=== PATIENT | male | born 1990 | race Caucasian/White ===

== ENCOUNTER 2019-01-03 11:38 | Emergency (ER) | payer BC ==
--- NOTE | 2019-01-03 12:12 | ER Document Report ---
ED Medical Screen (RME) - General Chief Complaint: Pain With Urination Stated Complaint: POSSIBLE UTI Time Seen by Provider: 01/03/19 12:06 Mode of Arrival: Ambulatory Information source: Patient Notes: 28-year-old male presented to ED for complaint of pain and difficulty urinating. Yesterday and today. He states it medley when he urinates. He states he only dribbles out a little bit even though his patient urinate a lot. He states he has not had any unprotected sex. He states he does not have any discharge from his penis. Patient is alert oriented respirations regular and unlabored speaking in full sentences. 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 He states his only medical history is a heart murmur. I have greeted and performed a rapid initial assessment of this patient. A comprehensive ED assessment and evaluation of the patient, analysis of test results and completion of medical decision making process will be conducted by an additional ED providers. TRAVEL OUTSIDE OF THE [place] IN LAST 30 DAYS: No - Related Data Allergies/Adverse Reactions: No Known Allergies Allergy (Unverified 01/03/19 11:39) Past Medical History - Social History Frequency of alcohol use: 3 beer daily Drug Abuse: None Renal/ Medical History: Denies: Hx Peritoneal Dialysis Physical Exam - Vital signs Vitals: Temp Pulse Resp BP Pulse Ox 98.2 F 83 16 156/81 H 98 01/03/19 11:50 01/03/19 11:50 01/03/19 11:50 01/03/19 11:50 01/03/19 11:50 Course - Vital Signs Vital signs: Temp Pulse Resp BP Pulse Ox 98.2 F 83 16 156/81 H 98 01/03/19 11:50 01/03/19 11:50 01/03/19 11:50 01/03/19 11:50 01/03/19 11:50
[2019-01-03 12:21] LABS: APPEARANCE,URINE SLIGHTLY-CLOUDY; BILIRUBIN,URINE NEGATIVE (NEGATIVE); COLOR,URINE YELLOW; GLUCOSE, URINE NEGATIVE (NEGATIVE); KETONES,URINE NEGATIVE (NEGATIVE); LEUKOCYTE ESTERASE,URINE MODERATE (NEGATIVE); NITRITE,URINE NEGATIVE (NEGATIVE); PROTEIN,URINE NEGATIVE (NEGATIVE); URINE SPECIFIC GRAVITY 1.019; UROBILINOGEN,URINE NEGATIVE mg/dL (<2.0)
[2019-01-03 13:03] VITALS: BP 147/69
[2019-01-03] MEDS ORDERED: LIDOCAINE 1% INJ-PF (10 MG/ML) 30 ML SDV INJ ONE (13:08)
[2019-01-03] MEDS ORDERED: CEPHALEXIN 500 MG CAPSULE PO ONE (13:08)
[2019-01-03] MEDS ORDERED: AZITHROMYCIN 250 MG TABLET PO ONE (13:08)
[2019-01-03] MEDS ORDERED: CEFTRIAXONE INJ 250 MG VIAL IM ONE (13:08)
--- NOTE | 2019-01-03 13:15 | ER Document Report ---
ED GI/ - General Chief Complaint: Pain With Urination Stated Complaint: POSSIBLE UTI Time Seen by Provider: 01/03/19 12:06 Mode of Arrival: Ambulatory Information source: Patient Notes: 28-year-old male presented to ED for burning and frequency painful urination. He states he has diffuse decreased in his stream. He states this been going on for couple days. Patient is alert oriented respirations regular and unlabored speaking in full sentences walks with a even steady gait. He states he has a history of heart murmur. He states he smokes a pack per day and drinks about 3 beers a day. 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 TRAVEL OUTSIDE OF THE [place] IN LAST 30 DAYS: No - HPI Patient complains to provider of: Dysuria, Other - Frequency urgency and burning with urination Onset: Other Timing/Duration: Gradual - Couple days Quality of pain: Burning Severity at maximum: Moderate Severity in ED: Moderate Pain Level: 4 Associated symptoms: Dysuria, Urinary frequency, Urinary urgency, Other - Decreased stream. denies: Penile discharge Exacerbated by: Other - Urination Relieved by: Denies Similar symptoms previously: No Recently seen / treated by doctor: No - Related Data Allergies/Adverse Reactions: No Known Allergies Allergy (Unverified 01/03/19 11:39) Past Medical History - General Information source: Patient - Social History Smoking Status: Current Every Day Smoker Frequency of alcohol use: 3 beer daily Drug Abuse: None Family History: Reviewed & Not Pertinent Patient has suicidal ideation: No Patient has homicidal ideation: No - Past Medical History Cardiac Medical History: Reports: Hx Heart Murmur Pulmonary Medical History: Reports: None EENT Medical History: Reports: None Neurological Medical History: Reports: None Endocrine Medical History: Reports: None Renal/ Medical History: Reports: None Malignancy Medical History: Reports None GI Medical History: Reports: None Musculoskeletal Medical History: Reports None Skin Medical History: Reports None Psychiatric Medical History: Reports: None Traumatic Medical History: Reports: None Infectious Medical History: Reports: None Surgical Hx: Negative Past Surgical History: Reports: None - Immunizations Immunizations up to date: Yes Review of Systems - Review of Systems Constitutional: No symptoms reported EENT: No symptoms reported Cardiovascular: No symptoms reported Respiratory: No symptoms reported Gastrointestinal: No symptoms reported Genitourinary: Burning, Frequency, Urgency Male Genitourinary: No symptoms reported Musculoskeletal: No symptoms reported Skin: No symptoms reported Hematologic/Lymphatic: No symptoms reported Neurological/Psychological: No symptoms reported -: Yes All other systems reviewed and negative Physical Exam - Vital signs Vitals: Temp Pulse Resp BP Pulse Ox 98.2 F 83 16 156/81 H 98 01/03/19 11:50 01/03/19 11:50 01/03/19 11:50 01/03/19 11:50 01/03/19 11:50 Interpretation: Normal - General General appearance: Appears well, Alert - HEENT Head: Normocephalic, Atraumatic Eyes: Normal Pupils: PERRL - Respiratory Respiratory status: No respiratory distress Chest status: Nontender Breath sounds: Normal Chest palpation: Normal - Cardiovascular Rhythm: Regular Heart sounds: Normal auscultation Murmur: No - Abdominal Inspection: Normal Distension: No distension Bowel sounds: Normal Tenderness: Nontender Organomegaly: No organomegaly - Back Back: Normal, Nontender - Extremities General upper extremity: Normal inspection, Nontender, Normal color, Normal ROM, Normal temperature General lower extremity: Normal inspection, Nontender, Normal color, Normal ROM, Normal temperature, Normal weight bearing. No: Bia's sign - Neurological Neuro grossly intact: Yes Cognition: Normal Orientation: AAOx4 Fidelia Coma Scale Eye Opening: Spontaneous Fidelia Coma Scale Verbal: Oriented Fidelia Coma Scale Motor: Obeys Commands Fidelia Coma Scale Total: 15 Speech: Normal Motor strength normal: LUE, RUE, LLE, RLE Sensory: Normal - Psychological Associated symptoms: Normal affect, Normal mood - Skin Skin Temperature: Warm Skin Moisture: Dry Skin Color: Normal Course - Re-evaluation Re-evalutation: 01/03/19 21:45 Urine was sent for urinalysis and GC and chlamydia. GC and Chlamydia were negative urine was positive for bacteria. Urine was sent for culture. Patient did not wait for GC and Chlamydia results so he did get Rocephin and azithromycin in the ED he also got Keflex for the UTI. Culture results will be obtained and determine if he needs other antibiotics. Patient was discharged home. He did call back and asked the results of the GC and chlamydia and was informed of the results. - Vital Signs Vital signs: Temp Pulse Resp BP Pulse Ox 98.7 F 80 16 147/69 H 98 01/03/19 13:02 01/03/19 13:02 01/03/19 13:02 01/03/19 13:02 01/03/19 13:02 - Laboratory Laboratory results interpreted by me: 01/03/19 11:51 Ur Leukocyte Esterase MODERATE H Discharge - Discharge Clinical Impression: Urethritis UTI (urinary tract infection) Qualifiers: Urinary tract infection type: acute cystitis Hematuria presence: without hematuria Qualified Code(s): N30.00 - Acute cystitis without hematuria Condition: Stable Disposition: HOME, SELF-CARE Instructions: Family Physicians / Practices Additional Instructions: URINARY TRACT INFECTION: Your evaluation indicates that you have a urinary tract infection. This is due to germs growing in the bladder. This is a common problem. This infection usually responds quickly to antibiotics. Your antibiotic should be taken exactly as prescribed. Drink plenty of fluids -- three to four quarts a day. Occasionally, a bladder anesthetic will be prescribed to help stop the feeling of urgency until the antibiotic has a chance to clear the infection. This may cause your urine to be dark orange. Certain urine infections require a culture. If the doctor obtained a culture, the results will be back in two days. You should call to see if a change in treatment is needed. A repeat urinalysis after you finish treatment is often recommended. The physician will let you know if further testing is required. Call the doctor if you develop fever, chills, flank pain, inability to urinate, or blood in the urine. Urethritis You have urethritis, an infection of the urethra. The usual symptoms are pain on urination and discharge. The infection is often caused by gonorrhea or chlamydia. Treatment is antibiotics. In addition, any sexual contacts should be evaluated by a physician as soon as possible. As this infection can be transmitted sexually, refrain from sexual activity until the infection is confirmed as healed by your physician. If gonorrhea or chlamydia is found on culture, the health department must be notified. Call the doctor at once if you develop difficulty passing your urine, high fever, rash, joint swelling, or other new symptoms. CEPHALEXIN: The antibiotic you've been prescribed is a member of the cephalosporin class. This type of antibiotic covers a wide variety of infections, including those of the skin, lungs, and urinary tract. It's useful for staph infections. This antibiotic is slightly similar to the penicillin family. In rare cases, a person who is allergic to penicillin will also be allergic to this medication. If you have had a severe allergic reaction to penicillin, and have not taken this antibiotic since that time, notify your doctor. Antibiotics which cover many germs ("broad spectrum" antibiotics) are more likely to cause diarrhea or "yeast" infections. Women prone to vaginal yeast problems may suffer an attack after taking this antibiotic. In infants, oral thrush (white spots "stuck" on the cheek) or yeast diaper rash may result. See your doctor if these problems occur. Call at once if you develop itching, hives, shortness of breath, or lightheadedness. Azithromycin Azithromycin (Zithromax) is a broad spectrum antibiotic in the same class as erythromycin. It can treat a variety of bacterial infections, but is most frequently used for respiratory infections. Azithromycin is extremely long-lasting. It accumulates in body tissues and continues to kill bacteria for many days. In order to improve absorption, Azithromycin should be taken at least one hour before or two hours after a meal. It does not have the same strong tendency to upset the stomach as erythromycin and is usually very well tolerated. Patients who have had a rash or other true allergic reactions to erythromycin should not take this medication. Call if you develop gastrointestinal distress, severe diarrhea, rash, hives, itching, or shortness of breath. Rocephin You have been given an injection of an antibiotic called Rocephin (ceftriaxone). Sometimes the injection must be combined with antibiotic pills. For some infections, such as an uncomplicated ear infection, Rocephin provides all the antibiotic that's needed. The antibiotic will be in your body for about two days. For serious infections, we usually repeat doses of Rocephin daily. Side effects are very unusual following a shot. Women may develop vaginal yeast infections, and babies can get yeast (thrush) in the mouth following the use of antibiotics. Contact your physician if you have symptoms with this medication. Allergy to this antibiotic can result in hives, wheezing, faintness, or itching. If symptoms of allergy occur, call the doctor at once. FOLLOW-UP CARE: If you have been referred to a physician for follow-up care, call the physicians office for an appointment as you were instructed or within the next two days. If you experience worsening or a significant change in your symptoms, notify the physician immediately or return to the Emergency Department at any time for re-evaluation. Prescriptions: Cephalexin Monohydrate [Keflex 500 mg Capsule] 500 mg PO Q6H 5 Days capsule Forms: Elevated Blood Pressure, Smoking Cessation Education, Return to Work
[2019-01-03 14:06] LABS: CHLAM PCR NOT DETECTED (NOT DETECT); GON PCR NOT DETECTED (NOT DETECT)
== END 2019-01-03 13:20 | disposition home or self-care (01) ==
LOC: ER 11:38
DX: N30.00 Acute cystitis without hematuria (principal); B96.89 Other specified bacterial agents as the cause of diseases classified elsewhere; N34.2 Other urethritis; F17.200 Nicotine dependence, unspecified, uncomplicated
CPT/HCPCS: 99283; 96372; 87086; 81001; 87491; 87591; J3490; J0696; 36415